=== PATIENT | male | born 1995 | race Caucasian/White ===

== ENCOUNTER 2021-09-23 18:33 | Emergency (ER) | payer OTHER ==
[~2021-09-23] VITALS: Ht 177.8 cm; Wt 88.1 kg
[2021-09-23 18:34] VITALS: BP 137/84
[2021-09-23] MEDS ORDERED: LIDOCAINE 5% (LIDODERM) PATCH TD ONE (22:40)
[2021-09-23] MEDS ORDERED: methocarbamoL 750 MG TAB PO ONE (22:40)
[2021-09-23] MEDS ORDERED: KETOROLAC 60MG 2ML VIAL IM ONE (22:40)
[2021-09-23] MEDS ORDERED: METH-1165 PO (23:31)
[2021-09-23] MEDS ORDERED: PRED20TA PO (23:31)
[2021-09-23] MEDS ORDERED: KETO10TAB PO (23:31)
[2021-09-24] MEDS ORDERED: **NOTE PATIENT COMMENT** MISC XX SCH (21:00)
== END 2021-09-23 23:42 | disposition home or self-care (01) ==
LOC: M ED 18:33
DX: M54.50 Low back pain, unspecified (principal); F32.A Depression, unspecified; F41.9 Anxiety disorder, unspecified; Z79.899 Other long term (current) drug therapy
CPT/HCPCS: 96372; 99282; J1885